=== PATIENT | female | born 1930 | race Caucasian/White ===

== ENCOUNTER 2017-03-18 11:26 | Inpatient (IN) | payer MEDICARE, BC ==
[~2017-03-18] VITALS: Ht 160 cm; Wt 74.5 kg
[2017-03-18] VITALS (205 sets, daily range): BP systolic 131–164; BP diastolic 54–103; PULSE 40–74; TEMP 96.7–98.4; O2SAT 90–99
[~2017-03-18 11:26] MED LIST: ASPI325T6 PO; ASPIRIN 81M81 MG/TA2 PO; LASIX 20MG TABL20 MG PO; NORCO 325 MG-7.1 TAB PO; PRINIVIL20 MG PO; TYLENOL PM EXTR1 TA1 PO; ZOCOR 20MG20 MG PO
[2017-03-18 13:58] LABS: BASO # 0.1 (0.0-0.2); BASO % 0.7 % (0.0-2.0); EOS # 0.1 (0.0-0.7); EOS % 1.3 % (0-4.0); GRAN # 5.8 (1.4-6.5); GRAN % 70.5 % (42.2-75.2); HEMOGLOBIN 12.5 g/dl (12.5-16.0); LYMPH # 1.7 (1.2-3.4); LYMPH % 20.3 % (20.0-51.0); MEAN CELL VOLUME 89 fl (80.0-100.0); MEAN CORPUSCULAR HEMOGLOBIN 29 pg (27.0-31.0); MEAN CORPUSCULAR HGB CONC 33 g/dl (33.0-37.0); MEAN PLATELET VOLUME 10.1 fl (7.4-10.4); MONO # 0.6 (0.1-0.6); PLATELET COUNT 239 K/mm3 (130-400); RED BLOOD COUNT 4.27 M/mm3 (4.10-5.30); REDCELL DISTRIBUTION WIDTH-CV 13.9 % (11.5-14.5); WHITE BLOOD COUNT 8.2 K/mm3 (4.8-10.8)
[2017-03-18 14:02] LABS: INR 1.2 (0.8-3.0); PROTHROMBIN TIME 12.8 SECONDS (9.7-12.8)
[2017-03-18 14:11] LABS: ADJUSTED CALCIUM 9.1 mg/dL (8.4-10.2); ALBUMIN 4.2 gm/dL (3.5-5.0); BILIRUBIN,TOTAL 0.7 mg/dL (0.0-1.0); CALCIUM 9.3 mg/dL (8.4-10.2); CREATININE, serum 1.28 mg/dL (0.52-1.25); POTASSIUM 4.6 mmol/L (3.4-5.0); TOTAL PROTEIN 7.7 gm/dL (6.4-8.2)
[2017-03-18] MEDS ORDERED: TYLENOL 500MG500 MG PO (14:38)
[2017-03-18] MEDS ORDERED: ASPIRIN 81M81 MG/TA2 PO (14:38)
[2017-03-18] MEDS ORDERED: CALCIUM CARB W/1 TA1 PO (14:39)
[2017-03-18] MEDS ORDERED: MULTI VITAMINS1 TAB PO (14:39)
[2017-03-18] MEDS ORDERED: LASIX 20MG TABL20 MG PO (14:42)
[2017-03-19] VITALS (491 sets, daily range): BP systolic 131–149; BP diastolic 61–73; PULSE 64–71; TEMP 97–98.4; O2SAT 90–100
[2017-03-19] MEDS ORDERED: CLEOCIN HCL300 MG PO (09:32)
== END 2017-03-19 12:47 | disposition home or self-care (01) | DRG 244 ==
LOC: ICU 11:26 → IMCU 11:46 → ICU 11:46 → IMCU 12:14
PROVIDERS: Internal Medicine Cardiovascular Disease
PROC: 0JH606Z Insertion of Pacemaker, Dual Chamber into Chest Subcutaneous Tissue and Fascia, Open Approach (ICD-10-PCS; principal; 2017-03-18)
PROC: 02H63JZ Insertion of Pacemaker Lead into Right Atrium, Percutaneous Approach (ICD-10-PCS; 2017-03-18)
PROC: 02HK3JZ Insertion of Pacemaker Lead into Right Ventricle, Percutaneous Approach (ICD-10-PCS; 2017-03-18)
DX: I44.2 Atrioventricular block, complete (principal); I10 Essential (primary) hypertension; Z66 Do not resuscitate; Z86.73 Personal history of transient ischemic attack (TIA), and cerebral infarction without residual deficits
CPT/HCPCS: C1769; C1785; C1894; C1898; J2250; J3010; J3370; J7030; J7050

== ENCOUNTER → 2017-03-22 | Outpatient (CLI) | payer MEDICARE, BC ==
[~2017-03-22] MED LIST changes: +CALCIUM CARB W/1 TA1 PO; +CLEOCIN HCL300 MG PO; +MULTI VITAMINS1 TAB PO; +TYLENOL 500MG500 MG PO
== END ==
LOC: COL.PUL 08:32
DX: N93.0 Postcoital and contact bleeding (principal); R06.02 Shortness of breath